=== PATIENT | male | born 1990 | race Caucasian/White ===

== ENCOUNTER 2018-05-06 09:26 | Emergency (ER) | payer MEDICAID ==
[~2018-05-06] VITALS: Ht 177.8 cm; Wt 83.0 kg
[~2018-05-06 09:26] MED LIST: HYDR-4383 PO
[2018-05-06 09:28] VITALS: BP 141/101
== END 2018-05-06 11:06 | disposition home or self-care (01) ==
LOC: ER 09:27
DX: M79.674 Pain in right toe(s) (principal); M79.89 Other specified soft tissue disorders; F12.90 Cannabis use, unspecified, uncomplicated
CPT/HCPCS: 99281